=== PATIENT | male | born 1975 | race Caucasian/White ===

== ENCOUNTER 2017-07-18 01:13 | Emergency (ER) | payer BC ==
[~2017-07-18] VITALS: Ht 165.1 cm; Wt 74.8 kg
[2017-07-18 01:15] VITALS: BP 132/82
--- NOTE | 2017-07-18 01:25 | NUR ---
PATIENT AMBULATED TO ER BED 11.
--- NOTE | 2017-07-18 01:27 | NUR ---
41/M CAME IN W C/O 10/26 LT RIB PAIN S/P FALL X 1 WEEK AGO. ALL LUNG SOUNDS CBTA, 18RR EVEN AND UNLABORED, +TENDERNESS TO LT RIBS. DENIES PMH/RX, REPORTS HE HAS BEEN TAKING TYLENOL WITHOUT RELIEF
[2017-07-18] MEDS ORDERED: KETOROLAC 60 MG/2 ML VIAL IM ONE (01:45)
[2017-07-18 02:15] VITALS: BP 103/75
== END 2017-07-18 02:15 | disposition home or self-care (01) ==
LOC: MED 01:13
DX: S20.20XA Contusion of thorax, unspecified, initial encounter (principal); R03.0 Elevated blood-pressure reading, without diagnosis of hypertension; W17.89XA Other fall from one level to another, initial encounter; Y93.89 Activity, other specified; Y92.69 Other specified industrial and construction area as the place of occurrence of the external cause; Y99.0 Civilian activity done for income or pay
CPT/HCPCS: 71101; 96372; 99284; J1885

== ENCOUNTER 2023-01-31 15:58 | Emergency (ER) | payer BC ==
[~2023-01-31] VITALS: Ht 165.1 cm; Wt 81.2 kg
[2023-01-31 16:03] VITALS: BP 102/71; PULSE 92; TEMP 98.2; O2SAT 99
[2023-01-31] MEDS ORDERED: KETOROLAC 30 MG/ML VIAL IM ONE (16:35)
[2023-01-31] MEDS ORDERED: IBUP-2213 PO (18:17)
== END 2023-01-31 18:36 | disposition home or self-care (01) ==
LOC: MED 15:58
DX: S83.8X2A Sprain of other specified parts of left knee, initial encounter (principal); X58.XXXA Exposure to other specified factors, initial encounter; Y93.89 Activity, other specified; Y92.89 Other specified places as the place of occurrence of the external cause; Y99.8 Other external cause status
CPT/HCPCS: 73562; 96372; 99283; J1885

== ENCOUNTER 2023-07-05 20:57 | Emergency (ER) | payer BC ==
[~2023-07-05] VITALS: Ht 165.1 cm; Wt 86.0 kg
[~2023-07-05 20:57] MED LIST: IBUP-2213 PO
[2023-07-05 22:16] VITALS: BP 110/72; PULSE 82; RESP 18; TEMP 97.6; O2SAT 97
[2023-07-05] MEDS ORDERED: ACET-8905 PO (23:06)
== END 2023-07-05 23:20 | disposition home or self-care (01) ==
LOC: MED 20:57
DX: S92.491A Other fracture of right great toe, initial encounter for closed fracture (principal); Z79.899 Other long term (current) drug therapy; W18.30XA Fall on same level, unspecified, initial encounter; Y93.89 Activity, other specified; Y92.89 Other specified places as the place of occurrence of the external cause; Y99.8 Other external cause status
CPT/HCPCS: 73660; 99283